=== PATIENT | male | born 1970 | race Caucasian/White ===

== ENCOUNTER 2017-08-24 19:04 | Emergency (ER) | payer BC ==
[~2017-08-24] VITALS: Ht 193 cm; Wt 90.7 kg
[2017-08-24 20:19] LABS: BASOPHILS # (AUTO) 0.1 K/uL (0.0-8.0); EOSINOPHILS # (AUTO) 0.1 K/uL (0.0-0.7); EOSINOPHILS % (AUTO) 1.2 % (0.0-7.0); HEMATOCRIT 43.6 % (36.7-47.1); HEMOGLOBIN 14.6 g/dL (12.5-16.3); LYMPHOCYTES # (AUTO) 2.2 K/uL (20.0-40.0); LYMPHOCYTES % (AUTO) 36.4 % (20.5-51.5); MEAN CORPUSCULAR HGB CONC 34 g/dL (32.5-36.3); MEAN CORPUSCULAR VOLUME 86.7 fL (73.0-96.2); MONOCYTES # (AUTO) 0.5 K/uL (2.0-10.0); MONOCYTES % (AUTO) 8.4 % (0.0-11.0); NEUTROPHILS # (AUTO) 3.2 K/uL (1.8-8.9); PLATELET COUNT (AUTO) 145 K/uL (152-348); RED BLOOD CELL COUNT(AUTO) 5.02 MIL/uL (4.06-5.63)
[2017-08-24 20:34] LABS: BILIRUBIN,DIRECT 0.1 mg/dL (0.0-0.2); BILIRUBIN,TOTAL 0.5 mg/dL (0.2-1.0); CREATININE 1.1 mg/dL (0.6-1.3); POTASSIUM 3.9 mmol/L (3.5-5.1)
[2017-08-24] MEDS ORDERED: HYDROCODONE/APAP 5-325MG TABLET PO ONE (21:15)
[2017-08-24] MEDS ORDERED: HYDROCODONE/APAP 5-325MG TABLET ONE (21:28)
--- NOTE | 2017-08-24 21:32 | NUR ---
Patient discharged to home in stable conditon. Written and verbal after care instructions given. Patient verbalizes understanding of instructions. Patient ambulated out of ER with steady gait, instructed not to drive, reports she's driving, VSS, all belongings taken, no acute signs of distress.
== END 2017-08-24 21:32 | disposition home or self-care (01) ==
LOC: ER 19:07
DX: M79.1 Myalgia (principal); T39.4X5A Adverse effect of antirheumatics, not elsewhere classified, initial encounter; Y92.89 Other specified places as the place of occurrence of the external cause
CPT/HCPCS: 36415; 70030-TC; 71045; 83605; 85025; 85651; 87040; A4663

== ENCOUNTER 2022-05-11 15:29 | Emergency (ER) | END 2022-05-11 16:48 | disposition home or self-care (01) | DX: F41.9 Anxiety disorder, unspecified (principal); G47.00 Insomnia, unspecified; J06.9 Acute upper respiratory infection, unspecified | CPT/HCPCS: 99283; 96372; J2060 ==